=== PATIENT | male | born 1930 | race Caucasian/White ===

== ENCOUNTER 2017-02-12 18:14 | Observation (INO) | payer OTHER ==
[~2017-02-12] VITALS: Ht 170.2 cm; Wt 68.7 kg
[~2017-02-12 18:14] MED LIST: Flagyl PO; Flomax PO; LIPITOR40 MG PO; Nitrostat,NitroQuick SL; Protonix PO
[2017-02-12 18:52] LABS: BASOPHIL COUNT 0.1 K/uL (0-0.1); EOSINOPHIL (%) 0.8 % (0-5); EOSINOPHIL COUNT 0.1 K/uL (0-0.3); IMMATURE GRANULOCYTE (%) 0.2 % (0.0-0.7); INSTRUMENT ABS NEUTROPHIL CT 6.4 K/uL; LYMPHOCYTE COUNT 2.6 K/uL (1.0-2.8); MCH 32.1 PG (29.0-34.0); MCHC 33.9 G/DL (30.0-36.0); MCV 94.7 FL (86-99); MEAN PLAT.VOLUME 10.1 uM^3 (9.0-12.4); MONOCYTE (%) 8.3 % (3-12); MONOCYTE COUNT 0.8 K/uL (0-0.8); NEUTROPHIL COUNT 6.4 K/uL (1.8-6.4); PLATELET COUNT 274 K/uL (156-360); RBC DIS.WIDTH-CV 13.4 % (11.8-14.6); RED BLOOD COUNT 4.33 M/uL (4.00-5.50)
[2017-02-12 19:06] LABS: CHLORIDE 107 mEq/L (99-109); POTASSIUM 4.4 mEq/L (3.7-5.4); SODIUM 139 mEq/L (136-147)
[2017-02-12 19:07] LABS: PROTHROMBIN TIME 10.9 SEC (10.2-12.9)
[2017-02-12 19:08] LABS: GLUCOSE 109 mg/dL (70-99)
[2017-02-12 19:09] LABS: ANION GAP 6 MEQ/L (2-14)
[2017-02-12 19:10] LABS: TOTAL BILIRUBIN 0.3 mg/dL (0.0-1.0)
[2017-02-12 19:11] LABS: ALKALINE PHOSPHATASE 47 IU/L (3-129)
[2017-02-12 19:12] LABS: GFR ESTIMATE (CALCULATED) > 59 mL/min/
[2017-02-12 19:13] LABS: UREA NITROGEN (BUN) 16 mg/dL (9-23)
[2017-02-12 19:15] LABS: LIPASE 33 U/L (1.0-51.0)
[2017-02-12] MEDS ORDERED: ATORVASTATIN CA10 MG PO (19:42)
[2017-02-12] MEDS ORDERED: VITAMIN D31000 UNI2 PO (19:43)
[2017-02-12] MEDS ORDERED: OMEPRAZOLE20 MG PO (19:43)
[2017-02-12 21:55] LABS: HDL CHOLESTEROL 60 MG/DL (Desirable>=40); LDL CHOLESTEROL 56 mg/dL (Desirable<100); NON-HDL CHOLESTEROL 77 mg/dL (Desirable<160); TOTAL CHOLESTEROL 137 mg/dL (Desirable<200); TRIGLYCERIDES 106 MG/DL (Normal: <150)
[2017-02-12 22:07] LABS: ADD MIUA? NO; BILIRUBIN NEGATIVE; BLOOD NEGATIVE; COLOR YELLOW ((YELLOW)); GLUCOSE (STRIP) NEGATIVE; KETONES NEGATIVE; LEUKOCYTES NEGATIVE; NITRITE NEGATIVE; PROTEIN (STRIP) NEGATIVE; SPECIFIC GRAVITY 1.009 (1.000-1.030); UROBILINOGEN 0.2 MG/DL (0.2-1.0)
[2017-02-12 23:14] VITALS: BP 125/67
[2017-02-13 02:21] LABS: TROP-I INTERPRETATION NEGATIVE; TROPONIN-I 0.01 ng/mL (0.0-0.30)
[2017-02-13 03:00] VITALS: BP 114/76
[2017-02-13 08:00] VITALS: BP 139/76
[2017-02-13 08:34] LABS: HEMATOCRIT 37.9 % (38.0-50.0); MCH 31.8 PG (29.0-34.0); MCHC 33.5 G/DL (30.0-36.0); MCV 94.8 FL (86-99); MEAN PLAT.VOLUME 10.2 uM^3 (9.0-12.4); PLATELET COUNT 256 K/uL (156-360); RBC DIS.WIDTH-CV 13.5 % (11.8-14.6); RBC DIS.WIDTH-SD 47.5 % (39-53)
[2017-02-13 08:47] LABS: PROTHROMBIN TIME 11.8 SEC (10.2-12.9)
[2017-02-13 08:57] LABS: PTT 53.8 SEC (25-37)
[2017-02-13 09:03] LABS: ANION GAP 5 MEQ/L (2-14); CHLORIDE 107 MEQ/L (99-109); GFR ESTIMATE (CALCULATED) > 59 mL/min/; GLUCOSE 93 mg/dL (70-99); POTASSIUM 4.6 MEQ/L (3.7-5.4); SAMPLE HEMOLYSIS CHECK 0; SAMPLE ICTERIC CHECK 0; SAMPLE LIPEMIA CHECK 0; SODIUM 141 MEQ/L (136-147); UREA NITROGEN (BUN) 15 mg/dL (9-23)
[2017-02-13 09:26] LABS: TROP-I INTERPRETATION NEGATIVE; TROPONIN-I < 0.01 ng/mL (0.0-0.30)
[2017-02-13 13:38] VITALS: BP 117/62
== END 2017-02-13 15:25 | disposition short-term general hospital (02) ==
LOC: EME 18:14 → EDOF 20:19 → 4EAST 20:19 → ENRESERV 20:21 → 4EAST 22:10
PROVIDERS: Hospitalist; Internal Medicine; Physician Assistant
DX: I25.110 Atherosclerotic heart disease of native coronary artery with unstable angina pectoris (principal); I25.84 Coronary atherosclerosis due to calcified coronary lesion; E78.5 Hyperlipidemia, unspecified; Z90.49 Acquired absence of other specified parts of digestive tract
CPT/HCPCS: 71020; 80048; 80053; 80061; 81003; 83690; 84484; 85025; 85027; 85347; 85610; 85730; 86850; 86900; 86901; 93005; 99281; 99285; C1769; C1887; G0378; J1644; J2250; J3010; J7040

== ENCOUNTER 2017-03-03 11:09 | Emergency (ER) | payer OTHER ==
[~2017-03-03] VITALS: Ht 170.2 cm; Wt 68.7 kg
[~2017-03-03 11:09] MED LIST changes: +ATORVASTATIN CA10 MG PO; +OMEPRAZOLE20 MG PO; +VITAMIN D31000 UNI2 PO
[2017-03-03 11:52] LABS: HEMATOCRIT 38.2 % (38.0-50.0); MCH 30.9 PG (29.0-34.0); MCHC 32.5 G/DL (30.0-36.0); MCV 95.3 FL (86-99); MEAN PLAT.VOLUME 9.7 uM^3 (9.0-12.4); RBC DIS.WIDTH-CV 14.7 % (11.8-14.6); RBC DIS.WIDTH-SD 51.4 % (39-53); RED BLOOD COUNT 4.01 M/uL (4.00-5.50); WHITE BLOOD COUNT 12.4 K/uL (4.1-10.2)
[2017-03-03 11:55] LABS: PLATELET COUNT 483 K/uL (156-360)
[2017-03-03 12:01] LABS: CHLORIDE 103 mEq/L (99-109); POTASSIUM 5.1 mEq/L (3.7-5.4); SODIUM 137 mEq/L (136-147)
[2017-03-03 12:02] LABS: GLUCOSE 95 mg/dL (70-99)
[2017-03-03 12:04] LABS: ANION GAP 9 MEQ/L (2-14)
[2017-03-03 12:06] LABS: GFR ESTIMATE (CALCULATED) > 59 mL/min/ (58.99-99999)
[2017-03-03 12:07] LABS: UREA NITROGEN (BUN) 17 mg/dL (9-23)
[2017-03-03 13:40] LABS: TROP-I INTERPRETATION NEGATIVE; TROPONIN-I < 0.01 ng/mL (0.0-0.30)
[2017-03-03 14:37] LABS: ADD MIUA? YES; BILIRUBIN NEGATIVE; BLOOD NEGATIVE; COLOR YELLOW ((YELLOW)); GLUCOSE (STRIP) NEGATIVE; KETONES NEGATIVE; LEUKOCYTES NEGATIVE; NITRITE NEGATIVE; PROTEIN (STRIP) NEGATIVE; SPECIFIC GRAVITY 1.015 (1.000-1.030); UROBILINOGEN 0.2 MG/DL (0.2-1.0)
[2017-03-03 14:51] LABS: BACTERIA RARE /HPF; EPITHELIAL CELLS NONE SEEN /HPF; MUCUS TRACE /LPF; RED BLOOD CELLS 0-5 /HPF (0-5); UCUL ADDED? NO; WHITE BLOOD CELLS 0-5 /HPF (0-5)
[2017-03-03 16:31] LABS: TROP-I INTERPRETATION NEGATIVE; TROPONIN-I 0.03 ng/mL (0.0-0.30)
[2017-03-03] MEDS ORDERED: LASIX40 MG PO (18:45)
[2017-03-03 19:08] VITALS: BP 116/80
== END 2017-03-03 19:36 | disposition home or self-care (01) ==
LOC: EME 11:09
PROVIDERS: Physician Assistant Medical
DX: J90 Pleural effusion, not elsewhere classified (principal); R60.0 Localized edema; I31.3 Pericardial effusion (noninflammatory); Z95.1 Presence of aortocoronary bypass graft; Z98.890 Other specified postprocedural states; Z88.1 Allergy status to other antibiotic agents
CPT/HCPCS: 71020; 71260; 80048; 81003; 83605; 83880; 84484; 85027; 87040; 87502; 93005; 99281; 99285; J1940; J7030

== ENCOUNTER 2017-08-28 11:26 | Emergency (ER) | payer OTHER ==
[~2017-08-28] VITALS: Ht 170.2 cm; Wt 70.7 kg
[~2017-08-28 11:26] MED LIST changes: +LASIX40 MG PO
[2017-08-28 12:10] LABS: HEMATOCRIT 25.7 % (38.0-50.0); HEMOGLOBIN 8.4 G/DL (12.5-16.6); MCH 28.7 PG (29.0-34.0); MCHC 32.7 G/DL (30.0-36.0); MCV 87.7 FL (86-99); PLATELET COUNT 302 K/uL (156-360); RBC DIS.WIDTH-CV 13.8 % (11.8-14.6); RBC DIS.WIDTH-SD 44.4 % (39-53); RED BLOOD COUNT 2.93 M/uL (4.00-5.50); WHITE BLOOD COUNT 7.9 K/uL (4.1-10.2)
[2017-08-28 12:27] LABS: ALBUMIN 4.2 g/dL (3.2-4.8); CHLORIDE 107 mEq/L (99-109); POTASSIUM 4.7 mEq/L (3.7-5.4); SODIUM 139 mEq/L (136-147)
[2017-08-28 12:29] LABS: GLUCOSE 96 mg/dL (70-99); TOTAL PROTEIN 6.4 g/dL (6.4-8.3)
[2017-08-28 12:31] LABS: TOTAL BILIRUBIN 0.4 mg/dL (0.0-1.0)
[2017-08-28 12:33] LABS: ALKALINE PHOSPHATASE 43 IU/L (3-129); CREATININE 1.1 mg/dL (0.6-1.3); GFR ESTIMATE (CALCULATED) > 59 mL/min/ (58.99-99999)
[2017-08-28 12:34] LABS: UREA NITROGEN (BUN) 19 mg/dL (9-23)
[2017-08-28 12:35] LABS: AST (GOT) 19 IU/L (2-34); DIRECT BILIRUBIN 0.2 mg/dL (0.0-0.3)
[2017-08-28 12:36] LABS: ALT (GPT) 16 IU/L (3-49); LIPASE 31 U/L (1.0-51.0)
[2017-08-28] MEDS ORDERED: LIPITOR40 MG PO (13:34)
[2017-08-28] MEDS ORDERED: LOPRESSOR50 MG PO (13:34)
[2017-08-28] MEDS ORDERED: CENTRUM SILVER1 EAC3 PO (13:35)
[2017-08-28] MEDS ORDERED: LO-DOSE ASPIRIN81 M1 PO (13:35)
[2017-08-28] MEDS ORDERED: BACTRIM,SEPT1 TABLET PO (15:22)
[2017-08-28 16:04] VITALS: BP 119/66
[2017-08-28 16:08] LABS: APPEARANCE CLEAR ((CLEAR)); BILIRUBIN NEGATIVE; BLOOD MODERATE; COLOR STRAW ((YELLOW)); GLUCOSE (STRIP) NEGATIVE; KETONES NEGATIVE; LEUKOCYTES NEGATIVE; NITRITE NEGATIVE; PROTEIN (STRIP) NEGATIVE; SPECIFIC GRAVITY 1.016 (1.000-1.030); UROBILINOGEN 0.2 MG/DL (0.2-1.0)
[2017-08-28 16:46] LABS: EPITHELIAL CELLS NONE SEEN /HPF; WHITE BLOOD CELLS NONE SEEN /HPF (0-5)
[2017-08-28 16:47] LABS: BACTERIA RARE /HPF; MUCUS NONE SEEN /LPF; UCUL ADDED? NO
== END 2017-08-28 16:07 | disposition home or self-care (01) ==
LOC: EME 11:26
PROVIDERS: Emergency Medicine
PROC: 0T9B70Z Drainage of Bladder with Drainage Device, Via Natural or Artificial Opening (ICD-10-PCS; principal; 2017-08-28)
DX: D64.9 Anemia, unspecified (principal); N40.1 Benign prostatic hyperplasia with lower urinary tract symptoms; R33.8 Other retention of urine; Z95.1 Presence of aortocoronary bypass graft; Z90.49 Acquired absence of other specified parts of digestive tract; Z88.1 Allergy status to other antibiotic agents; Z86.73 Personal history of transient ischemic attack (TIA), and cerebral infarction without residual deficits
CPT/HCPCS: 74177; 80048; 80076; 81003; 83690; 85027; 86850; 86900; 86901; 99281; 99285; J7030